=== PATIENT | male | born 1995 | race African-American/Black ===

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

== ENCOUNTER 2022-04-05 02:22 | Emergency (ER) | payer OTHER ==
[2022-04-05 02:42] VITALS: RESP 16; BMI 26.5
[2022-04-05] MEDS ORDERED: ACETAMINOPHEN 1000 MG/100 ML BAG IVPB ONE (02:46)
[2022-04-05] MEDS ORDERED: FAMOTIDINE 20 MG/50 ML IVPB 20 MG/50 ML MG IVPB ONE ×2 (02:46→02:50)
[2022-04-05] MEDS ORDERED: SODIUM CHLORIDE 1,000 ML IV STA (02:46)
[2022-04-05] MEDS ORDERED: ACETAMINOPHEN INJECTION 100 ML IVPB ONE (02:50)
[2022-04-05 04:29] LABS: URINE APPEARANCE CLEAR; URINE BILIRUBIN NEGATIVE (NEGATIVE); URINE COLOR YELLOW; URINE GLUCOSE (UA) NEGATIVE (NEGATIVE); URINE KETONE 2+ (NEGATIVE); URINE LEUK ESTERASE NEGATIVE (NEGATIVE); URINE NITRITE NEGATIVE (NEGATIVE); URINE PROTEIN NEGATIVE (NEGATIVE)
[2022-04-05 04:31] LABS: BASO % 0.1 % (0-2.0); EOS % 1.2 % (0-4.5); HEMATOCRIT 46.6 % (35.4-49); HEMOGLOBIN 15.7 GM/dL (11.7-16.9); LYMPH % 16.2 % (8-40); MCH 26.8 pg (25.7-33.7); MCHC 33.7 g/dl (32.0-35.9); MEAN CELL VOLUME 79.6 fl (80-96); MEAN PLT VOLUME 8.1 fl (7.5-11.1); MONO % 6.6 % (3.8-10.2); NEUT % 75.9 % (42.8-82.8); PLATELET COUNT 224 10^3/uL (134-434); RBC 5.85 M/mm3 (4.00-5.60); WHITE BLOOD COUNT 12.2 K/mm3 (4.0-10.0)
[2022-04-05 04:52] LABS: BLOOD UREA NITROGEN 12.8 mg/dL (7-18); CALCIUM 9.4 mg/dL (8.5-10.1)
[2022-04-05 04:53] LABS: ALBUMIN 4.2 g/dl (3.4-5.0)
[2022-04-05 04:55] LABS: CREATININE 1.1 mg/dL (0.55-1.3)
[2022-04-05 04:57] LABS: TOT PROT 7.4 g/dl (6.4-8.2)
[2022-04-05 05:20] VITALS: BP 107/63; PULSE 80; TEMP 99.4
== END 2022-04-05 05:22 | disposition home or self-care (01) ==
LOC: FER 02:22
PROC: 3E0333Z Introduction of Anti-inflammatory into Peripheral Vein, Percutaneous Approach (ICD-10-PCS; principal; 2022-04-05)
PROC: 3E033GC Introduction of Other Therapeutic Substance into Peripheral Vein, Percutaneous Approach (ICD-10-PCS; 2022-04-05)
PROC: 3E0337Z Introduction of Electrolytic and Water Balance Substance into Peripheral Vein, Percutaneous Approach (ICD-10-PCS; 2022-04-05)
DX: R10.13 Epigastric pain (principal); R50.9 Fever, unspecified
CPT/HCPCS: 0241U-QW; 36415; 80053; 81003; 83690; 85025; 99284-25

== ENCOUNTER 2023-04-14 11:20 | Emergency (ER) | payer OTHER ==
[2023-04-14 11:48] VITALS: BP 140/78; PULSE 77; RESP 16; TEMP 98.8; BMI 26.5
[2023-04-14] MEDS ORDERED: ACETAMINOPHEN 325 MG TABLET (FP) PO ONE (11:54)
[2023-04-14] MEDS ORDERED: ACETAMINOPHEN 325 MG TABLET (FP) ONE (11:56)
== END 2023-04-14 12:10 | disposition home or self-care (01) ==
LOC: FER 11:20
DX: M25.552 Pain in left hip (principal); M62.838 Other muscle spasm
CPT/HCPCS: 99283-25